=== PATIENT | female | born 1940 | race Caucasian/White ===

== ENCOUNTER 2017-04-12 14:37 | Inpatient (IN) | payer MEDICARE ==
[~2017-04-12] VITALS: Ht 167.6 cm; Wt 62.7 kg
[2017-04-12 14:50] LABS: BASO % 0.5 % (0.0-2.0); EOS # 0.1 (0.0-0.7); EOS % 1.4 % (0-4.0); GRAN # 2.5 (1.4-6.5); GRAN % 40.6 % (42.2-75.2); HEMATOCRIT 37.2 % (37.0-47.0); HEMOGLOBIN 12.2 g/dl (12.5-16.0); LYMPH # 3.1 (1.2-3.4); LYMPH % 49.1 % (20.0-51.0); MEAN CELL VOLUME 95 fl (80.0-100.0); MEAN CORPUSCULAR HEMOGLOBIN 31 pg (27.0-31.0); MEAN CORPUSCULAR HGB CONC 33 g/dl (33.0-37.0); MONO # 0.5 (0.1-0.6); MONO % 7.4 % (1.7-9.3); PLATELET COUNT 152 K/mm3 (130-400); RED BLOOD COUNT 3.92 M/mm3 (4.10-5.30); REDCELL DISTRIBUTION WIDTH-CV 12.9 % (11.5-14.5); WHITE BLOOD COUNT 6.2 K/mm3 (4.8-10.8)
[2017-04-12 14:53] LABS: PROTHROMBIN TIME 10.5 SECONDS (9.7-12.8)
[2017-04-12 14:55] LABS: PARTIAL THROMBOPLASTIN TIME 26.4 SECONDS (26.0-37.0)
[2017-04-12 15:07] LABS: ALANINE AMINOTRANSFERASE 33 U/L (9-52); ALBUMIN 4.6 gm/dL (3.5-5.0); ALKALINE PHOSPHATASE 44 U/L (50-136); ANION GAP 18 mmol/L (7-16); BLOOD UREA NITROGEN 9 mg/dL (7-17); CALCIUM 9.5 mg/dL (8.4-10.2); CARBON DIOXIDE 16 mmol/L (22-30); CHLORIDE 97 mmol/L (98-107); CREATININE, serum 0.77 mg/dL (0.52-1.25); GLUCOSE 107 mg/dL (74-106); POTASSIUM 3.8 mmol/L (3.4-5.0); SODIUM 131 mmol/L (137-145); TOTAL PROTEIN 7.1 gm/dL (6.4-8.2)
[2017-04-12 15:23] LABS: PROLACTIN 148.2 ng/mL (3.0-18.6)
[2017-04-12 15:26] LABS: TROPONIN-I < 0.012 ng/mL (0.000-0.034)
[2017-04-12 15:27] LABS: C-REACTIVE PROTEIN < 0.5 mg/dL (0.0-0.9)
[2017-04-12] MEDS ORDERED: NORCO 325 MG-51 TAB PO (16:32)
[2017-04-12 17:29] VITALS: BP 101/56; PULSE 73; TEMP 97.5
[2017-04-12 20:27] VITALS: BP 103/51; PULSE 73; TEMP 97.7
[2017-04-12 23:45] VITALS: BP 94/56; PULSE 68; TEMP 98.1
[2017-04-13] VITALS (9 sets, daily range): BP systolic 94–122; BP diastolic 52–68; PULSE 58–70; TEMP 97.5–98.5
[2017-04-14 03:38] VITALS: BP 101/51; PULSE 64; TEMP 98.4
[2017-04-14 06:35] LABS: CALCIUM 8.7 mg/dL (8.4-10.2); CREATININE, serum 0.8 mg/dL (0.52-1.25); POTASSIUM 4.2 mmol/L (3.4-5.0)
[2017-04-14 08:09] VITALS: BP 101/58; PULSE 63; TEMP 98.2
[2017-04-14] MEDS ORDERED: KEPPRA 500MG500 MG PO (08:31)
[2017-04-14] MEDS ORDERED: PLAVIX 75MG TAB75 MG PO (08:31)
[2017-04-14 12:26] VITALS: BP 101/54; PULSE 72; TEMP 97.5
== END 2017-04-14 16:42 | disposition home or self-care (01) | DRG 100 ==
LOC: COL.ER 14:37 → MEDICAL 16:09
PROVIDERS: Emergency Medicine; Internal Medicine Gastroenterology; Physician Assistant
PROC: 0DJ08ZZ Inspection of Upper Intestinal Tract, Via Natural or Artificial Opening Endoscopic (ICD-10-PCS; principal; 2017-04-13 16:45)
DX: R56.9 Unspecified convulsions (principal); I63.9 Cerebral infarction, unspecified; R13.10 Dysphagia, unspecified
CPT/HCPCS: OP; 99223-AI; 99233-AI; 99239; A9284; A9585; J1953; J2060; J2250; J2405; J3010; J7030